=== PATIENT | male | born 1970 | race African-American/Black ===

== ENCOUNTER 2017-04-13 13:44 | Emergency (ER) | payer OTHER ==
--- NOTE | ~2017-04-13 | EKG ---
PATIENT: KRIS HERNANDEZ UNIT #: [id number] Ventricular Rate: 89 BPM Atrial Rate: 89 BPM P-R Interval: 122 ms QRS Duration: 72 ms Q-T Interval: 360 ms QTC Calculation(Bezet): 438 ms P Milton: 33 degrees Calculated R Milton: -25 degrees Calculated T Milton: 18 degrees Diagnosis Line: Normal sinus rhythm Diagnosis Line: Normal ECG Diagnosis Line: No previous ECGs available Diagnosis Line: Confirmed by HERMES SARMIENTO MD ([id number]) on 04/14/2017 Diagnosis Line: 6:36:05 PM INTERPRETING MD: GUILLERMINA JUSTICE
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
[2017-04-13 14:45] LABS: POC - CKMB 1.4 ng/mL (0.0-7.9); POC - TROPONIN <0.05 ng/mL (<=0.05)
[2017-04-13 14:48] LABS: BASOPHIL% 0.8 % (0-2.5); EOSINOPHIL# 0.2 X10e3 (0-0.7); EOSINOPHIL% 4.2 % (0.0-7.0); HEMATOCRIT 41.3 % (38.0-50.0); HEMOGLOBIN 13.4 gm/dL (13.0-16.0); LYMPHOCYTE# 1.5 X10e3 (1.0-3.5); LYMPHOCYTE% 26.8 % (17.0-45.0); MEAN CELL VOLUME 89.3 FL (83-96); MEAN CORPUSCULAR HEMOGLOBIN 29.1 PG (28-34); MEAN CORPUSCULAR HGB CONC 32.6 g/dL (30-36); MEAN PLATELET VOLUME 10.6 FL (6.5-11.5); MONOCYTE# 0.7 X10e3 (0-1.0); MONOCYTE% 13.4 % (3.0-12.0); NEUTROPHIL% 54.8 % (40-75); PLATELET COUNT 176 X10e3 (140-420); RED BLOOD COUNT 4.62 X10e (3.90-5.60); RED CELL DISTRIBUTION WIDTH 14.2 % (11.0-15.5); WHITE BLOOD COUNT 5.4 X10e3 (4.0-10.5)
[2017-04-13 14:52] LABS: DIFF IND NO
[2017-04-13 15:13] LABS: PARTIAL THROMBOPLASTIN TIME 27.3 SECONDS (23.5-31.3)
[2017-04-13 15:19] LABS: ALBUMIN SERUM 4.1 g/dL (3.5-5.0); ALKALINE PHOSPHATASE 54 U/L (32-92); ALT (SGPT) 22 U/L (10-40); AST (SGOT) 28 U/L (10-42); BILIRUBIN,TOTAL 0.5 mg/dL (0.2-2.0); BLOOD UREA NITROGEN 13 mg/dL (9-23); BUN/CREATININE RATIO 16.25; CALCIUM SERUM 9.2 mg/dL (8.4-10.2); CARBON DIOXIDE 24 mmol/L (22-31); CHLORIDE 107 mmol/L (100-111); CREATININE SERUM 0.8 mg/dL (0.6-1.4); GLOM FILT RATE Estimated 107.9 mL/min (>60); GLUCOSE FASTING 91 mg/dL (70-110); POTASSIUM 4.1 mmol/L (3.5-5.1); PROTEIN TOTAL SERUM 7.3 g/dL (6.0-8.3); SODIUM 141 mmol/L (135-145)
[2017-04-13 15:21] LABS: BILIRUBIN, DIRECT <0.1 mg/dL (0.0-0.2); BILIRUBIN,INDIRECT 0.4 mg/dL (0.0-0.9)
== END 2017-04-13 17:46 | disposition home or self-care (01) ==
LOC: CED 13:44
PROVIDERS: Emergency Medicine
DX: R07.89 Other chest pain (principal); I10 Essential (primary) hypertension; Z87.891 Personal history of nicotine dependence
CPT/HCPCS: 36415; 71010; 80048; 80076; 82553; 84484; 85025; 85610; 85730; 93005; 99284

== ENCOUNTER → 2017-05-19 | Outpatient (CLI) | payer OTHER ==
--- NOTE | ~2017-05-19 | CR181 ---
[facility]. [facility] A Service of [facility] & [facility] RADIOLOGY TEXT RESULTS PATIENT: KRIS HERNANDEZ LOCATION: [facility] : 74 UNIT #: [id number] AGE: [address]: Finn Morin MD SEX: M ORDER DR: [id number] [place] [id number] O MR#: [id number] Acc #: [id number] NAME: KRIS HERNANDEZ : 1970 SEX: M STUDY DATE/TIME: 05/19/2017 13:03 UNIT: [facility] ROOM: STUDY DESCRIPTION: CR Lumbar Spine 2 or 3 Views Attending Physician: Finn Morin M.D. Referring Physician: Finn oMrin M.D. Ordering Physician: Finn Morin M.D. Primary Care Physician: Finn Morin M.D. MEDICAL IMAGING REPORT This report is preliminary unless electronic signature is present. EXAM Lumbar spine series 3 views 05/19/2017 CLINICAL HISTORY Clinical history is back and hip pain for 6 months, no known injury. FINDINGS There is a mild mid lumbar levoscoliosis but alignment is otherwise normal. There is slight discogenic change at 5-1 but no acute abnormality is seen. Dictated by... Javi Espinosa M.D. THIS IS AN ELECTRONICALLY VERIFIED REPORT Javi Espinosa M.D. at 05/19/2017 5:04 PM KRISTEN/leatha TD: 05/19/2017 15:36 JOB #: [id number] MEDICAL IMAGING REPORT Page 1 of 1
== END | disposition home or self-care (01) ==
LOC: SRAD 12:48
DX: M54.5 Low back pain (principal)
CPT/HCPCS: 72100